=== PATIENT | male | born 1995 | race Hispanic/Latino ===

== ENCOUNTER 2019-06-22 23:21 | Emergency (ER) | payer BC, SELFPAY ==
[2019-06-22] MEDS ORDERED: Fluorescein Opthalmic Strip ONE (23:37)
[2019-06-22] MEDS ORDERED: Erythromycin Base 0.5% Oint 1 GM TUBE ONE (23:46)
== END 2019-06-22 23:53 | disposition home or self-care (01) ==
LOC: SCSER 23:21
DX: H16.133 Photokeratitis, bilateral (principal); W89.8XXA Exposure to other man-made visible and ultraviolet light, initial encounter; Y99.0 Civilian activity done for income or pay
CPT/HCPCS: 99283